=== PATIENT | male | born 1990 | race Caucasian/White ===

== ENCOUNTER 2018-10-14 18:45 | Inpatient (IN) | payer SELFPAY ==
[~2018-10-14] VITALS: Ht 175.3 cm; Wt 77.1 kg
[2018-10-14] MEDS ORDERED: SODIUM CHLORIDE 0.9% 1,000 ML IV ONE (19:10)
[2018-10-14] MEDS ORDERED: LORAZEPAM 2MG/ML CPJ IV ONE (19:15)
[2018-10-14] MEDS ORDERED: FOLIC ACID 1 MG, THIAMINE HCL 100 MG, MVI, ADULT NO.1 10 ML in DEXTROSE 5% WATER 1,000 ML IV ONE ×4 (19:15)
[2018-10-14] MEDS ORDERED: LORAZEPAM 2MG/ML CPJ IM ONE (19:30)
[2018-10-14 19:59] LABS: BASOPHILS % 0.9 % (0.0-2.0); HEMATOCRIT. 52.9 % (42.0-52.0); HEMOGLOBIN. 17.9 g/dL (14.0-18.0); MEAN CORPUSCULAR HEMOGLOBIN 30.6 pg (28.0-32.0); MEAN CORPUSCULAR VOLUME 90.2 fL (80.0-94.0); MEAN PLATELET VOLUME 7.4 fl (7.4-10.4); MONOCYTES % 5.6 % (2.0-8.0); NEUTROPHILS % 62.5 % (40.0-76.0); PLATELET 317 x1000/uL (130-400); RED BLOOD CELL COUNT 5.86 mill/uL (4.7-6.1); RED CELL DISTRIBUTION WIDTH 13.8 % (11.6-14.6)
[2018-10-14 20:05] LABS: INR 1.1; PARTIAL THROMBOPLASTIN TIME 30.2 sec (23.4-31.0); PROTHROMBIN TIME 10.7 sec (9.1-11.1)
[2018-10-14 20:12] LABS: CREATINE KINASE 724 IU/L (39-308)
[2018-10-14 20:14] LABS: CREATINE KINASE MB FRACTION 7.2 ng/mL (0.5-3.6)
[2018-10-14 20:15] LABS: ETHANOL BLOOD 316 mg/dL
[2018-10-14] MEDS ORDERED: FOLIC ACID 1 MG, MVI, ADULT NO.1 10 ML in DEXTROSE 5% WATER 1,000 ML IV ONE ×3 (20:30)
[2018-10-14 20:51] LABS: CHLORIDE 109 mEq/L (98-107)
[2018-10-14] MEDS ORDERED: ASPIRIN 81MG TABLET PO ONE (21:30)
[2018-10-14 22:09] LABS: *AMPHETAMINES SCREEN URINE PRESUMTIVE POSITIVE (NEGATIVE); *BARBITURATES SCREEN URINE NEGATIVE (NEGATIVE); *BENZODIAZEPINES SCREEN URINE NEGATIVE (NEGATIVE); *COCAINE SCREEN URINE NEGATIVE (NEGATIVE); METHADONE URINE SCREEN NEGATIVE (NEGATIVE); OPIATES URINE SCREEN NEGATIVE (NEGATIVE)
[2018-10-14 22:10] LABS: CANNABINOID URINE SCREEN NEGATIVE (NEGATIVE); PHENCYCLIDINE URINE SCREEN NEGATIVE (NEGATIVE)
[2018-10-15] VITALS (7 sets, daily range): BP systolic 108–129; BP diastolic 56–85
[2018-10-15] MEDS ORDERED: DEXT 5%/0.45% NACL 1000ML 1,000 ML IV SCH (06:00)
[2018-10-15] MEDS ORDERED: LORAZEPAM 2MG/ML CPJ IV PRN (09:00)
[2018-10-15] MEDS: THIAMINE HCL 100MG TABLET PO SCH (09:49)
[2018-10-15] MEDS: FOLIC ACID 1MG TABLET PO SCH (09:49)
[2018-10-15] MEDS: MULTIVITAMINS,THER W-MINERALS TABLET PO SCH (09:50)
[2018-10-15] MEDS ORDERED: INFLUENZA VIRUS VACCINE(AFLURIA) 0.5ML SYR IM ONE (10:00)
[2018-10-15 13:37] LABS: CHLORIDE 105 mEq/L (98-107)
[2018-10-15] MEDS: CHLORDIAZEPOXIDE 25MG CAPSULE PO SCH ×2 (13:57→21:00)
[2018-10-16] VITALS: BP 132/80
[2018-10-16 04:00] VITALS: BP 108/67
[2018-10-16] MEDS: CHLORDIAZEPOXIDE 25MG CAPSULE PO SCH (05:11)
[2018-10-16 08:00] VITALS: BP 119/74
[2018-10-16] MEDS: THIAMINE HCL 100MG TABLET PO SCH (08:00)
[2018-10-16] MEDS: MULTIVITAMINS,THER W-MINERALS TABLET PO SCH (08:00)
[2018-10-16] MEDS: FOLIC ACID 1MG TABLET PO SCH (08:00)
[2018-10-16 10:50] VITALS: BP 119/74
== END 2018-10-16 12:10 | disposition home or self-care (01) | DRG 203 ==
LOC: EDBD 18:45 → ER 18:45 → 8WST 21:46 → EDBEDREQ 21:54 → EDBEDREQTM 21:54 → ENRESERV 10-15 01:11
PROVIDERS: ADMIT Internal Medicine; ATTEND Internal Medicine
DX: M94.0 Chondrocostal junction syndrome [Tietze] (principal); G92 Toxic encephalopathy; E87.8 Other disorders of electrolyte and fluid balance, not elsewhere classified; M62.82 Rhabdomyolysis; F15.10 Other stimulant abuse, uncomplicated; F10.10 Alcohol abuse, uncomplicated; F17.200 Nicotine dependence, unspecified, uncomplicated; Y90.8 Blood alcohol level of 240 mg/100 ml or more; R00.0 Tachycardia, unspecified; F19.10 Other psychoactive substance abuse, uncomplicated
CPT/HCPCS: 36415; 71045; 80048; 80061; 80305; 80307; 80329; 82550; 82553; 83735; 84443; 84484; 93005; 93306; 96365; 99285; G0482; J3411; J3490; J7030; J7070